=== PATIENT | female | born 1990 | race Caucasian/White ===

== ENCOUNTER 2020-10-10 19:43 | Emergency (ER) | payer OTHER, MEDICAID ==
[~2020-10-10] VITALS: Ht 157.5 cm; Wt 95.3 kg
[2020-10-10 19:55] LABS: URINE BILIRUBIN NEGATIVE (Negative); URINE BLOOD NEGATIVE (Negative); URINE CLARITY CLEAR; URINE COLOR YELLOW; URINE GLUCOSE-RANDOM NEGATIVE (Negative); URINE KETONES NEGATIVE (Negative); URINE LEUKOCYTES-REFLEX NEGATIVE (Negative); URINE NITRITE-REFLEX NEGATIVE (Negative); URINE PROTEIN NEGATIVE (Negative); URINE SPECIFIC GRAVITY 1.015 (1.005-1.030); URINE UROBILINOGEN 0.2 E.U./dl (0.2-1.0)
[2020-10-10] MEDS ORDERED: HYDROCODON-ACE1 EAC8 PO (21:28)
[2020-10-10 21:35] VITALS: BP 131/81
== END 2020-10-10 21:35 | disposition home or self-care (01) ==
LOC: M.ERS 19:43
PROVIDERS: Emergency Medicine
DX: S80.01XA Contusion of right knee, initial encounter (principal); M25.511 Pain in right shoulder; M54.6 Pain in thoracic spine; Z98.890 Other specified postprocedural states; Z88.0 Allergy status to penicillin; W18.39XA Other fall on same level, initial encounter; Y93.89 Activity, other specified; Y92.89 Other specified places as the place of occurrence of the external cause; Y99.8 Other external cause status

== ENCOUNTER 2021-03-29 09:47 | Emergency (ER) | payer MEDICAID ==
[~2021-03-29] VITALS: Ht 152.4 cm; Wt 99.3 kg
[~2021-03-29 09:47] MED LIST: HYDROCODON-ACE1 EAC8 PO
[2021-03-29] MEDS ORDERED: PROAIR HFA8.5 GM INH (11:31)
[2021-03-29] MEDS ORDERED: DECADRON6 MG PO (11:31)
[2021-03-29 11:38] VITALS: BP 115/79
== END 2021-03-29 11:38 | disposition home or self-care (01) ==
LOC: M.ERS 09:47
DX: U07.1 COVID-19 (principal); R42 Dizziness and giddiness; R11.0 Nausea; Z98.890 Other specified postprocedural states; Z79.899 Other long term (current) drug therapy; Z88.0 Allergy status to penicillin